=== PATIENT | female | born 1955 | race Caucasian/White ===

== ENCOUNTER 2019-07-07 00:03 | Inpatient (IN) | payer MEDICARE ==
[~2019-07-07] VITALS: Ht 170.2 cm; Wt 50.5 kg
[2019-07-07] MEDS ORDERED: DILTIAZEM HCL 120MG ER CAP PO ONE (01:00)
[2019-07-07] MEDS ORDERED: DILTIAZEM HCL 25 MG/5 ML VIAL IV ONE (01:00)
[2019-07-07] MEDS ORDERED: SODIUM CHLORIDE 0.9% 500 ML IV ONE (01:00)
[2019-07-07 01:44] LABS: Basophils # (auto) 0 uL; Basophils % (auto) 0.3 % (0.0-2.0); Eosinophils # (auto) 0 uL; Eosinophils % (auto) 0.4 % (0.0-7.0); Hemoglobin 15.6 g/dL (12.2-16.2); Lymphocytes # (auto) 0.2 uL; Lymphocytes % (auto) 2.1 % (10.0-50.0); Mean Corpuscular Hemoglobin 31.8 pg (28.0-32.0); Mean Corpuscular Hgb Conc. 34.6 g/dL (32.0-36.0); Mean Corpuscular Volume 91.7 fL (80.0-100.0); Monocytes # (auto) 0.5 uL; Monocytes % (auto) 4.5 % (0.0-12.0); Neutrophils # (auto) 9.4 uL; Neutrophils % (auto) 92.7 % (37.0-80.0); Nucleated Red Blood Cells % 0.1 %; Platelet Count (auto) 220 10^3/uL (140-450); Red Blood Cells 4.91 10^6/uL (4.0-5.20); Red Cell Distribution Width 13.4 % (11.8-14.3); White Blood Cell 10.1 10^3/uL (4.4-10.8)
[2019-07-07 01:59] LABS: INR 1.05 (0.9-1.15); Partial Thromboplastin Time 26.6 sec (23.64-32.05)
[2019-07-07 02:01] LABS: Alanine Aminotransferase 14 U/L (13-56); Albumin 2.8 g/dL (3.4-5.0); Anion Gap 8 (5-15); Aspartate Aminotransferase 12 U/L (15-37); BUN/Creatinine Ratio 60.7; Blood Urea Nitrogen 17 mg/dL (7-18); Calcium 7.9 mg/dL (8.5-10.1); Carbon Dioxide 21 mmol/L (21-32); Chloride 116 mmol/L (98-107); GFR African American 311 mL/min; GFR Non-African American 257 mL/min; Glucose 108 mg/dL (74-106); Potassium 3.5 mmol/L (3.5-5.1); Sodium 145 mmol/L (136-145)
[2019-07-07 02:05] LABS: Alkaline Phosphatase 60 U/L (45-117); Bilirubin, Total 0.4 mg/dL (0.2-1.0); Total Protein 5.9 g/dL (6.4-8.2)
[2019-07-07] MEDS ORDERED: ACETAMINOPHEN 325 MG TAB PO PRN (05:00)
[2019-07-07] MEDS ORDERED: NITROGLYCERIN 0.4 MG SL TAB SL PRN (05:00)
[2019-07-07] MEDS ORDERED: HYDROcodone-ACET 5/325MG TAB PO PRN (05:00)
[2019-07-07] MEDS ORDERED: METOPROLOL TARTRATE 1MG/1ML-5ML VIAL IV PRN (05:00)
[2019-07-07] MEDS ORDERED: ONDANSETRON HCL 4 MG/2 ML VIAL IV PRN (05:00)
[2019-07-07] MEDS ORDERED: DOCUSATE SOD 100 MG CAP PO PRN (05:00)
[2019-07-07] MEDS ORDERED: MORPHINE SULFATE 4 MG/ML SYR/VIAL IV PRN (05:00)
[2019-07-07] MEDS: TECFIDERA 240 MG PO SCH ×2 (09:33→21:35)
[2019-07-07] MEDS ORDERED: BENAZEPRIL HCL 10 MG TAB PO SCH (10:00)
[2019-07-07] MEDS ORDERED: SOTALOL HCL 80 MG TAB PO SCH (10:00)
[2019-07-07] MEDS ORDERED: ASPirin 81 mg TAB PO SCH (10:00)
[2019-07-07] MEDS ORDERED: ENOXAPARIN SOD 40 MG/0.4 ML SYRINGE SC ONE (12:15)
[2019-07-07] MEDS ORDERED: MORPHINE SULF INJ 2 MG/ML SYRINGE 1ML IV PRN (12:30)
[2019-07-07] MEDS ORDERED: POTASSIUM CHLORIDE 20 MEQ, LIDOCAINE 1% (LOCAL ANESTH.) 2 ML in SODIUM CHL 0.9% 100 ML IV ONE (12:45)
[2019-07-07 14:00] LABS: Cholesterol 137 mg/dL (< 200); HDL Cholesterol 57 mg/dL (40-59); LDL Cholesterol 67 mg/dL (< 100); Triglycerides 55 mg/dL (< 150)
[2019-07-07 20:30] VITALS: BP 90/50
--- NOTE | 2019-07-07 20:30 | NUR ---
Telemetry admit from ER DANIELAMICHAEL admitted to Telemetry unit. Patient oriented to Yanique Barbosa RN primary RN, unit, room, bed, and unit policies regarding patient care and visiting hours. Patient now on continuous telemetry monitoring, tele box #65 and telemetry reading on arrival to unit is SB HR 59. Patient on room air, weighed by bedscale and encouraged to call if they need something. All questions and concerns addressed, patient verbalized understanding. Note: Family at bedside. Fall and safety precautions in place. Call light within reach.
--- NOTE | 2019-07-07 20:50 | NUR ---
WOUND Pictures taken of patient's sacrum, Zguard applied, and covered with optifoam. Patient repositioned in bed for comfort. Fall and safety precautions in place. Call light within reach. Will continue to monitor
[2019-07-07] MEDS: APIXABAN 5 MG TAB PO SCH (21:36)
[2019-07-07] MEDS: METOPROLOL TARTRATE 25 MG TAB PO SCH (21:37)
[2019-07-07 22:00] VITALS: BP 90/50
[2019-07-07] MEDS ORDERED: ATORVASTATIN 20 MG TAB PO SCH (22:00)
[2019-07-08] MEDS ORDERED: DIME240C PO (00:24)
[2019-07-08] MEDS ORDERED: BENA20TA14 PO (00:24)
[2019-07-08] MEDS ORDERED: ASPI-404 PO (00:24)
[2019-07-08 05:00] VITALS: BP 122/62
--- NOTE | 2019-07-08 05:00 | NUR ---
IV insertion IV access obtained, via clean sterile technique by inserting 20 gauge catheter at LFA after first attempt. IV secured properly. No trauma to site. Patient tolerated well.
--- NOTE | 2019-07-08 05:00 | NUR ---
HYGIENE Patient was cleaned of urine. Partial bath done and partial linen change done. Patient was repositioned in bed for comfort, tolerated well. Fall and safety precautions in place. Call light within reach. Will continue to monitor
--- NOTE | 2019-07-08 06:30 | NUR ---
HYGIENE Patient cleaned of urine. Partial bath given, zguard applied to sacral area, and partial linen change done. Patient repositioned for comfort, tolerated well. Fall and safety precautions in place. Call light within reach. Will continue to monitor
[2019-07-08 07:09] LABS: Basophils # (auto) 0 uL; Basophils % (auto) 0.3 % (0.0-2.0); Eosinophils # (auto) 0.1 uL; Eosinophils % (auto) 1.8 % (0.0-7.0); Hematocrit 44.3 % (36.0-46.0); Lymphocytes # (auto) 0.4 uL; Lymphocytes % (auto) 6.9 % (10.0-50.0); Mean Corpuscular Hemoglobin 31.7 pg (28.0-32.0); Mean Corpuscular Hgb Conc. 33.8 g/dL (32.0-36.0); Mean Corpuscular Volume 93.6 fL (80.0-100.0); Monocytes # (auto) 0.5 uL; Monocytes % (auto) 8.6 % (0.0-12.0); Neutrophils # (auto) 4.8 uL; Neutrophils % (auto) 82.4 % (37.0-80.0); Platelet Count (auto) 189 10^3/uL (140-450); Red Blood Cells 4.74 10^6/uL (4.0-5.20); Red Cell Distribution Width 13.6 % (11.8-14.3); White Blood Cell 5.8 10^3/uL (4.4-10.8)
[2019-07-08 07:24] LABS: BUN/Creatinine Ratio 53.8; Calcium 8.3 mg/dL (8.5-10.1); Potassium 3.9 mmol/L (3.5-5.1)
[2019-07-08 08:00] VITALS: BP 128/69
[2019-07-08] MEDS ORDERED: ADENOSINE 42 MG in GIVE UN-DILUTED 0 ML IV STA (08:31)
[2019-07-08 09:00] VITALS: BP 128/69
[2019-07-08] MEDS ORDERED: BENAZEPRIL HCL 10 MG TAB PO SCH (10:00)
[2019-07-08] MEDS ORDERED: ENOXAPARIN SOD 40 MG/0.4 ML SYRINGE SC SCH (10:00)
[2019-07-08 10:37] VITALS: BP 155/87
[2019-07-08] MEDS: TECFIDERA 240 MG PO SCH (11:45)
[2019-07-08] MEDS: APIXABAN 5 MG TAB PO SCH (11:46)
[2019-07-08] MEDS: METOPROLOL TARTRATE 25 MG TAB PO SCH (11:46)
--- NOTE | 2019-07-08 12:08 | NUR ---
WOUND CARE NOTE: Wound care in to see patient per wound care request regarding skin integrity issue that are noted present on admission. Bedside nurse took photograph of patient's skin issue upon admission for reference. Patient is 64 y/o female with admitting diagnosis of A Fib with RVR. Patient with history of htn, MS, SC x2. Patient is resting in bed in Rm. 292B. Patient is awake, alert and oriented. Patient appears to be in no pain using Nash Ortiz Faces Pain Scale She need assistance in turning and repositioning. Her Aubrey score is 13 . Skin assessment done with the assistance of patient's nurse, JANEE Reaves. Patient's sacrum noted with intact skin with non-blanchable redness (Stage 1 pressure injury). Patient is incontinent of urine and wet the care pad. Monet care given, care pad changed, applied Z Guard cream to sacral, buttocks and covered sacrum with Opti foam sacral dressing. Repositioned patient for comfort facing her Rt. side, redistributed pressure points with pillows. Patient tolerated well. RECOMMENDATION: Nursing to continue BID/PRN cleaning and application of Z Guard cream to sacral/buttocks per MD order, Dietary consult, frequent turning and repositioning schedule as condition permits, redistribute pressure points with pillows, air mattress (ordered) elevate heels on pillows, continue monitoring by wound care while patient is hospitalized. Addendum: 07/08/19 at 1436 by Digna Landis RN Amended: Links added.
[2019-07-08 13:00] VITALS: BP 128/83
[2019-07-08] MEDS ORDERED: APIX5TAB PO (13:27)
[2019-07-08] MEDS ORDERED: MET25T PO (13:27)
[2019-07-08 14:53] VITALS: BP 128/83
--- NOTE | 2019-07-08 17:05 | NUR ---
PATIENT DISCHARGED HOME WITH FAMILY. ALL IV ACCESS DISCONTINUED. TELEMETRY BOX REMOVED AND RETURNED TO TELEMETRY DEPARTMENT. ALL DISCHARGE INSTRUCTIONS GIVEN. ALL DISCHARGE PAPERWORK SIGNED. PATIENT HOME MEDICATIONS RETURNED TO THE PATIENT.
== END 2019-07-08 17:05 | disposition home or self-care (01) | DRG 308 ==
LOC: EDBD 00:03 → ER 00:08 → TELE 00:09 → TELE-WESTW 20:34
PROVIDERS: ADMIT Hospitalist; ATTEND Internal Medicine
PROC: 5A2204Z Restoration of Cardiac Rhythm, Single (ICD-10-PCS; principal; 2019-07-07)
DX: I48.91 Unspecified atrial fibrillation (principal); E43 Unspecified severe protein-calorie malnutrition; I50.33 Acute on chronic diastolic (congestive) heart failure; Z68.1 Body mass index [BMI] 19.9 or less, adult; I11.0 Hypertensive heart disease with heart failure; L89.90 Pressure ulcer of unspecified site, unspecified stage; G35 Multiple sclerosis; F41.9 Anxiety disorder, unspecified; R32 Unspecified urinary incontinence; M75.01 Adhesive capsulitis of right shoulder; Z74.01 Bed confinement status; Z99.3 Dependence on wheelchair; I25.2 Old myocardial infarction; Z79.899 Other long term (current) drug therapy
CPT/HCPCS: 36415; 71045; 78452; 80048; 80053; 80061; 83735; 83880; 84443; 84484; 85025; 85610; 85730; 92960; 93005; 93017; 93306; 96361; 96374; G0378; J0153; J2001